=== PATIENT | male | born 1980 | race Caucasian/White ===

== ENCOUNTER 2017-06-28 20:57 | Emergency (ER) | payer SELFPAY ==
[2017-06-28] MEDS ORDERED: PROCHLORPERAZINE EDISYLATE INJ 10 MG/2 ML VIAL IM ONE (23:16)
[2017-06-28] MEDS ORDERED: KETOROLAC TROMETHAMINE INJ/PF 30 MG/1 ML SDV IM ONE (23:16)
[2017-06-28] MEDS ORDERED: DIPHENHYDRAMINE HCL 50 MG CAPSULE PO ONE (23:16)
--- NOTE | 2017-06-28 23:23 | ER Document Report ---
ED Medical Screen (RME) - General Chief Complaint: Headache Stated Complaint: BLURRY VISION/HEADACHE Time Seen by Provider: 06/28/17 23:07 TRAVEL OUTSIDE OF THE [place] IN LAST 30 DAYS: No - HPI Notes: 06/28/17 23:17 Patient is a 36-year-old male with no significant past medical history who presents to the ED complaining of a headache that started last night and has been persistent today with light sensitivity. Pt notes tingling in the left arm w/o any neck pain that started about 45mins ago. Patient states that he is still eating and drinking without difficulties. He is urinating normally and having normal bowel movements. 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 Patient does not wear any contacts or glasses. He has not been evaluated by an eye doctor since then. Patient states what brought him in was the headache. The headache does not radiate and is described as frontal in nature. No other concerns or complaints at this time. He is otherwise at baseline per significant other. Denies any headache, fever, head injury, neck pain, changes in speech/mentation/hearing, URI, sore throat, chest pain, palpitations, syncope, cough, shortness of breath, wheeze, dyspnea, abdominal pain, nausea/vomiting/diarrhea, urinary retention, dysuria, hematuria, loss of control of bowel or bladder, numbness/tingling, saddle anesthesia, muscle paralysis/weakness, or rash. I have treated and performed a rapid initial assessment of this patient. A comprehensive ED assessment and evaluation of the patient, analysis of test results and completion of medical decision making process will be conducted by additional ED providers. PHYSICAL EXAMINATION: GENERAL: Well-appearing, well-nourished and in no acute distress. A&Ox4. Answers questions appropriately. HEAD: Atraumatic, normocephalic. Non-tender. EYES: Pupils equal round and reactive to light, extraocular movements intact, sclera anicteric, conjunctiva are normal. No raccoon eyes/entrapment. No nystagmus. Our light sources are very cloudy and I could not picture the cup/ disc very well. ENT: EAC clear b/l. TM's intact b/l without erythema, fluid, or perforation. Nares patent and without discharge. oropharynx clear without exudates. No tonsilar hypertrophy or erythema. Moist mucous membranes. No sinus tenderness. NECK: Normal range of motion, supple without lymphadenopathy. No rigidity. No midline tenderness. Spurling negative. LUNGS: Breath sounds clear to auscultation bilaterally and equal. No wheezes rales or rhonchi. HEART: Regular rate and rhythm without murmurs, rubs, gallops. Musculoskeletal: Ext b/l: FROM to passive/active. Strength 5+/5. No deficits noted. No bony tenderness of extremities. Extremities: No cyanosis, clubbing, or edema b/l. Peripheral pulses 2+. Capillary refill less than 2 seconds. NEUROLOGICAL: NIH 0. GCS 15. Cranial nerves grossly intact. Normal speech, normal gait. Normal sensory, motor exams. Reflexes 2+ b/l. ALIYAH's negative. Pronator drift negative. Heel/rose, finger/nose wnl. Rhomberg negative. ( during NIH exam, pt states "I am not having a stroke.") No difference in sensations b/l. PSYCH: Normal mood, normal affect. SKIN: Warm, Dry, normal turgor, no rashes or lesions noted. - Related Data Allergies/Adverse Reactions: morphine Allergy (Verified 06/28/17 21:03) Past Medical History - Social History Chew tobacco use (# tins/day): No Frequency of alcohol use: None Drug Abuse: None Renal/ Medical History: Denies: Hx Peritoneal Dialysis Physical Exam - Vital signs Vitals: Temp Pulse Resp BP Pulse Ox 98.7 F 99 20 157/103 H 97 06/28/17 21:10 06/28/17 21:10 06/28/17 21:10 06/28/17 21:10 06/28/17 21:10 Course - Vital Signs Vital signs: Temp Pulse Resp BP Pulse Ox 98.7 F 87 20 158/103 H 98 06/28/17 21:10 06/28/17 22:39 06/28/17 22:39 06/28/17 22:39 06/28/17 22:39
[2017-06-29] MEDS ORDERED: HALOPERIDOL LACTATE INJ 5 MG/1 ML VIAL IV ONE (00:20)
[2017-06-29] MEDS ORDERED: RINGERS SOLUTION,LACTATED 1,000 ML IV ONE (00:21)
--- NOTE | 2017-06-29 01:40 | ER Document Report ---
ED General - General Chief Complaint: Headache Stated Complaint: BLURRY VISION/HEADACHE Time Seen by Provider: 06/28/17 23:07 Notes: Patient is a 36-year-old male without chronic medical problems who presents with 1 month of intermittent headaches as well as blurring of vision. The patient reports that he sustained a flash burn injury to his bilateral eyes approximately 1 month ago while welding. He reports that he has not sought care of any kind regarding this eye injury. He notes that since that time he has had increased blurring of his vision and has frequent headaches. Today he describes a progressively worsening bitemporal, throbbing, aching headache. He states that lights and sounds worsen the headache. Nothing has improved the headache. He denies any focal weakness, numbness or confusion. He has not seen a general doctor regarding his headaches. He states prior to the eye injury he did not typically have headaches. TRAVEL OUTSIDE OF THE [place] IN LAST 30 DAYS: No - Related Data Allergies/Adverse Reactions: morphine Allergy (Verified 06/28/17 21:03) Past Medical History - General Information source: Patient - Social History Smoking Status: Current Every Day Smoker Chew tobacco use (# tins/day): No Frequency of alcohol use: None Drug Abuse: None Lives with: Spouse/Significant other Family History: Reviewed & Not Pertinent Patient has suicidal ideation: No Patient has homicidal ideation: No Renal/ Medical History: Denies: Hx Peritoneal Dialysis Review of Systems - Review of Systems Notes: Constitutional: Negative for fever. HENT: Negative for sore throat. Eyes: Positive for blurring of vision bilaterally Cardiovascular: Negative for chest pain. Respiratory: Negative for shortness of breath. Gastrointestinal: Negative for abdominal pain, vomiting or diarrhea. Genitourinary: Negative for dysuria. Musculoskeletal: Negative for back pain. Skin: Negative for rash. Neurological: Positive for headaches 10 point ROS negative except as marked above and in HPI. Physical Exam - Vital signs Vitals: Temp Pulse Resp BP Pulse Ox 98.7 F 99 20 157/103 H 97 06/28/17 21:10 06/28/17 21:10 06/28/17 21:10 06/28/17 21:10 06/28/17 21:10 Interpretation: Hypertensive Notes: PHYSICAL EXAMINATION: GENERAL: Well-appearing, well-nourished and in no acute distress. HEAD: Atraumatic, normocephalic. EYES: Pupils equal round and reactive to light, extraocular movements intact, sclera anicteric, conjunctiva are normal. ENT: nares patent, oropharynx clear without exudates. Moist mucous membranes. NECK: Normal range of motion, supple without lymphadenopathy LUNGS: Breath sounds clear to auscultation bilaterally and equal. No wheezes rales or rhonchi. HEART: Regular rate and rhythm without murmurs ABDOMEN: Soft, nontender, normoactive bowel sounds. No guarding, no rebound. No masses appreciated. EXTREMITIES: Normal range of motion, no pitting or edema. No cyanosis. NEUROLOGICAL: Face symmetric. Tongue protrudes midline. Extraocular motions intact. Pupils are 2 mm and equally reactive. Normal speech, normal gait. 5 out of 5 strength in both the distal and proximal upper and lower extremities bilaterally. Sensation is grossly intact throughout. Finger to nose testing normal. Pronator drift normal. PSYCH: Normal mood, normal affect. SKIN: Warm, Dry, normal turgor, no rashes or lesions noted. Course - Re-evaluation Re-evalutation: 06/29/17 01:38 Presentation of a headache that appears to be most consistent with tension versus migrainous type headache. Headache was not maximal in onset, patient has no focal neurologic deficits, no nuchal rigidity, vital signs within normal limits, no papilledema, and patient is overall well in appearance. Based on clinical history and examination I do not suspect an acute subarachnoid hemorrhage, dural venous sinus thrombosis, acute meningitis, or intercranial mass. Given my low clinical suspicion for any acute life-threatening etiology, I do not feel advanced neuro imaging or laboratory testing is indicated at this time.Patient's headache did resolve after receiving a migraine cocktail. Patient's visual acuity is very poor 20/70 bilaterally from flash burn that he sustained almost 1 month ago. He has not yet sought care for this and this is likely the source of his recurrent headaches. I have strongly emphasized with him that he will require definitive eye care and needs to seek this urgently. We have also reviewed that he should not be driving a vehicle in this setting. At this time will discharge with return precautions and follow-up recommendations. Verbal discharge instructions given a the bedside and opportunity for questions given. Medication warnings reviewed. Patient is in agreement with this plan and has verbalized understanding of return precautions and the need for primary care follow-up in the next 24-72 hours. - Vital Signs Vital signs: Temp Pulse Resp BP Pulse Ox 98.7 F 90 17 152/86 H 100 06/28/17 21:10 06/29/17 01:49 06/29/17 01:49 06/29/17 01:49 06/29/17 01:49 Discharge - Discharge Clinical Impression: Flash burn of both eyes Migraine headache Qualifiers: Migraine type: unspecified Status migrainosus presence: with status migrainosus Intractability: not intractable Qualified Code(s): G43.901 - Migraine, unspecified, not intractable, with status migrainosus Condition: Stable Disposition: HOME, SELF-CARE Additional Instructions: Your repetitive headaches are coming from the fact that your visual acuity is very poor from flash burn you sustained to your eyes almost a month ago. Please do not drive a car or perform any activity that would be dangerous given that you can hardly see at this point. You need to see an eye physician urgently as your visual loss could become permanent if you do not seek the appropriate care. You were seen today for a migraine headache. Please follow-up with your primary care doctor regarding today's ED visit. Return to emergency department immediately if you develop a headache that gets to its maximum severity within 20 minutes of onset, you pass out, you develop weakness, numbness, changes in your vision, become unable to keep any fluids down for more than 12 hours, or develop a fever greater than 100.4 degrees Fahrenheit. If you develop a similar migraine headache in the future I recommend that you immediately take 600 mg of ibuprofen and 50 mg of Benadryl and go to sleep as quickly as possible. This can often prevent your migraine headache from becoming severe.
[2017-06-29 01:58] VITALS: BP 152/86
== END 2017-06-29 01:48 | disposition home or self-care (01) ==
LOC: ER 20:57
DX: H16.133 Photokeratitis, bilateral (principal); G43.901 Migraine, unspecified, not intractable, with status migrainosus; H53.8 Other visual disturbances; F17.200 Nicotine dependence, unspecified, uncomplicated
CPT/HCPCS: 99284; 96372; 96361; 96374; 96375; J1630; J1885; J0780; J7120